=== PATIENT | male | born 1970 | race Caucasian/White ===

== ENCOUNTER 2017-06-19 19:32 | Emergency (ER) | payer OTHER ==
[2017-06-19 19:50] VITALS: BP 143/96; PULSE 86; TEMP 98.9; BMI 34.1
--- NOTE | 2017-06-19 19:50 | PDOC ---
Rapid Medical Evaluation Time Seen by Provider: 06/19/17 19:47 Medical Evaluation: 06/19/17 19:47 The patient presents with a chief complaint of: cyst to the R wrist for 10 years. Today it is painful and patient says that it is bigger. I have performed a brief in-person evaluation of this patient; Pertinent physical exam findings: Appears to be a ganglion cyst to the R wrist/ forearm. afebrile I have ordered the following: Nothing The patient will proceed to the ED for further evaluation.
[2017-06-19] MEDS ORDERED: KETOROLAC TROMETHAMINE 60 MG/2 ML VIAL IM ONE (20:28)
[2017-06-19] MEDS ORDERED: KETOROLAC TROMETHAMINE 60 MG/2 ML VIAL ONE (20:31)
--- NOTE | 2017-06-19 20:31 | PDOC ---
History of Present Illness - General Chief Complaint: Abscess Boil Stated Complaint: CYST Time Seen by Provider: 06/19/17 19:47 History Source: Patient Exam Limitations: No Limitations - History of Present Illness Initial Comments: 47 y/o afebrile male with painful cyst to right wrist x 10 years. The patient states today the cyst became painful and he believes it is bigger. He states his doctor told him not to worry about it. He denies all other complaints. Past History - Past Medical History Allergies/Adverse Reactions: Allergies Allergy/AdvReac Type Severity Reaction Status Date / Time No Known Allergies Allergy Verified 06/19/17 19:47 Home Medications: Ambulatory Orders Lisinopril/Hydrochlorothiazide [Lisinopril-Hctz 10-12.5 mg Tab] 10 mg PO ASDIR 06/19/17 COPD: No Diabetes: Yes HTN: Yes - Suicide/Smoking/Psychosocial Hx Smoking History: Never smoked Review of Systems - Review of Systems Able to Perform ROS?: Yes Is the patient limited [place] proficient: No Constitutional: No: Symptoms Reported Musculoskeletal: Yes: Other (pain in right arm at location of cyst) Neurological: No: Symptoms reported *Physical Exam - Vital Signs Last Vital Signs Temp Pulse Resp BP Pulse Ox 98.9 F 86 18 143/96 99 06/19/17 19:48 06/19/17 19:48 06/19/17 19:48 06/19/17 19:48 06/19/17 19:48 - Physical Exam Comments: Patient is a well appearing, ambulatory male in NAD or obvious discomfort. General Appearance: Yes: Nourished, Appropriately Dressed. No: Apparent Distress Musculoskeletal: positive: Normal Inspection. negative: Decreased Range of Motion Extremity: positive: Normal Capillary Refill, Normal Range of Motion, Tender, Other (2cm in diameter ganglion cyst on distal medial dorsal right forearm that is TTP). 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 negative: Numbness Medical Decision Making - Medical Decision Making A/P: 47 y/o male with a ganglion cyst on his distal right forearm that has been present for 10 years. Will give IM toradol, supportive care instructions and refer to Neuro. The patient was instructed to take Motrin at home for pain and return to the ER with any worsening or concerning symptoms. The patient verbalizes understanding of all instructions, has no further questions and is awaiting discharge. *DC/Admit/Observation/Transfer Diagnosis at time of Disposition: Ganglion cyst - Discharge Dispostion Disposition: HOME Condition at time of disposition: Good - Referrals Referrals: José Antonio Valentine MD [Staff Physician] - - Patient Instructions Printed Discharge Instructions: Ganglion Cyst Additional Instructions: Discharge Instructions: -Take 600mg of over the counter Ibuprofen every 6 hours with food for pain -Follow up with your doctor or with Dr. Valentine within 2 weeks -Return to the ER with any worsening or concerning symptoms. Instrucciones de descarga: - Herlinda 600 mg de Ibuprofeno sin receta cada 6 horas con alimentos para el dolor -Siga con steven mdico o con el Dr. Valentine dentro de 2 semanas -Volver a la esa de emergencias con cualquier empeoramiento o sntomas. - Post Discharge Activity
== END 2017-06-19 20:39 | disposition home or self-care (01) ==
LOC: JERFT 19:32
PROC: 3E0333Z Introduction of Anti-inflammatory into Peripheral Vein, Percutaneous Approach (ICD-10-PCS; principal; 2017-06-19)
DX: M67.431 Ganglion, right wrist (principal); I10 Essential (primary) hypertension; E11.9 Type 2 diabetes mellitus without complications
CPT/HCPCS: 99281-25

== ENCOUNTER 2017-06-26 20:37 | Emergency (ER) | payer OTHER ==
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
[2017-06-26 20:58] VITALS: BP 170/96; PULSE 84; TEMP 98.7; BMI 34.1
[2017-06-26] MEDS ORDERED: IBUPROFEN 600 MG TABLET (FP) PO ONE (21:22)
[2017-06-26] MEDS ORDERED: CYCLOBENZAPRINE HCL 10 MG TABLET (FP) PO ONE (21:22)
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
== END 2017-06-26 22:47 | disposition home or self-care (01) ==
LOC: JERFT 20:37
DX: M54.5 Low back pain (principal); V49.49XA Driver injured in collision with other motor vehicles in traffic accident, initial encounter; Y92.488 Other paved roadways as the place of occurrence of the external cause; Y93.89 Activity, other specified; Y99.8 Other external cause status; I10 Essential (primary) hypertension; E11.9 Type 2 diabetes mellitus without complications
CPT/HCPCS: 99281-25